=== PATIENT | male | born 1950 | race Caucasian/White ===

== ENCOUNTER 2018-02-13 01:15 | Outpatient (CLI) | payer MEDICARE, SELFPAY ==
[2018-02-13] MEDS: Breeza Beverage 473 ML BTL PO ×2 (09:57→09:58)
[2018-02-13] MEDS: Omnipaque 350 MG/ML 50 ML BTL PO (09:58)
[2018-02-13] MEDS: Omnipaque 350 MG/ML 100 ML BTL IJ (11:25)
--- NOTE | 2018-02-13 11:37 | DI.RPTCT_ITS ---
SYMPTOM/DIAGNOSIS: ABNL WT LOSS, R63.4 CT CHEST, ABDOMEN AND PELVIS: The study was carried out according to the usual protocol with an intravenous administration of 100 cc Omnipaque 350 and oral ingestion of dilute barium. CT CHEST: No infiltrate, mass or pleural effusion is demonstrated. There is no evidence of hilar or mediastinal adenopathy. There is no evidence of pulmonary embolic disease. The heart is not enlarged. There is no pericardial effusion. There is no evidence of an aortic aneurysm. There are degenerative changes involving the lower dorsal spine. SUMMARY: No evidence of an infiltrate, pulmonary mass or adenopathy. ABDOMEN AND PELVIC CT: With oral and intravenous contrast enhanced exam reveals no evidence of an hepatic mass. The patient is status post cholecystectomy. The pancreas and spleen and kidneys are unremarkable save for a small bilateral renal cyst. The adrenals are normal. There is no evidence of bowel obstruction. A considerable quantity of fecal material is identified in the colon. No localized bowel wall abnormality is demonstrated. There is nothing to suggest an acute appendix. The bladder is unremarkable. Small calcifications are noted in an enlarged prostate. There is no evidence of abdominal or pelvic adenopathy. A tiny fat containing umbilical hernia is noted. There is no evidence of abdominal or pelvic free fluid. There is no evidence of an aortic aneurysm. There are mild degenerative changes involving the lumbar spine with note made of a narrowed vacuum disc at L5-S1. SUMMARY: No evidence of an intra-abdominal or pelvic or solid organ mass or adenopathy. Findings consistent with constipation.
== END 2018-02-13 01:16 ==
PROVIDERS: PCP Internal Medicine; Visit Provider Internal Medicine
DX: R63.4 Abnormal weight loss (principal); K59.00 Constipation, unspecified; N40.0 Benign prostatic hyperplasia without lower urinary tract symptoms; K42.9 Umbilical hernia without obstruction or gangrene; Z90.49 Acquired absence of other specified parts of digestive tract
CPT/HCPCS: 71260; 74177; Q9967; J3490